=== PATIENT | female | born 1945 | race Caucasian/White ===

== ENCOUNTER 2024-10-21 13:22 | Outpatient (CLI) | payer MEDICARE, MEDICAID, SELFPAY ==
--- NOTE | 2024-10-21 13:26 | US_ITS ---
PROCEDURE INFORMATION: Exam: US Left Breast, Complete US Right Breast, Complete MG Bilateral Diagnostic Breast Tomosynthesis Exam date and time: 10/21/2024 1:51 PM Age: 79 years old Clinical indication: History of left breast cancer treated with lumpectomy TECHNIQUE: Imaging protocol: Complete ultrasound of all four quadrants of the left breast and the retroareolar regions, including ultrasound of the axilla when performed. Complete ultrasound of all four quadrants of the right breast and the retroareolar regions, including ultrasound of the axilla when performed. Bilateral Diagnostic tomosynthesis and 2D mammography including computer-aided detection (CAD) when performed. Unilateral or bilateral exam. COMPARISON: MG MM DIG MAMM BI DX W/CAD 10/21/2024 1:35 PM FINDINGS: MAMMOGRAPHY: Breast composition: The breasts are heterogeneously dense, which may obscure small masses. Breast mammogram findings: There is no stellate mass, suspicious architectural distortion or suspicious microcalcifications in either breast to suggest malignancy. Architectural distortion and nipple areolar retraction on the left there are 2 prior lumpectomy for carcinoma. No suspicious skin thickening or axillary adenopathy. ULTRASOUND: Breast ultrasound findings: Sonographic images of both breasts including the retroareolar regions, all 4 quadrants and the axilla do not demonstrate any solid or cystic masses. Cursors were placed over normal subcutaneous fat in the right 2 o'clock axis. No architectural distortion or acoustical shadowing. No skin thickening or axillary adenopathy. IMPRESSION: 1. No mammographic or sonographic evidence of malignancy. Annual bilateral mammographic screening is recommended unless otherwise clinically indicated. 2. In women diagnosed with breast cancer before age 50 or with personal histories of breast cancer and dense breasts, the [employer] recommends annual supplemental MRI in addition to yearly mammography. Alternative supplemental studies may include breast sonography or contrast enhanced mammography. Please be aware that your insurance company will determine whether they will cover the cost of such screening, despite the recommendation of your doctors and the [employer]. It is your responsibility to determine your insurance benefits. ASSESSMENT: BI-RADS Category 2: Benign.
--- OUTSIDE RECORDS SUMMARY | 2024-10-21 13:27 | XMS_ITS | Clinical Summary ---
Author Organization [facility] Address [address] [place] [address] Phone Care Team Providers Care Energy Control Officer Name Role Phone Unavailable Primary Care Provider Unavailabl e Allergies Active Allergy Reactions Criticality Noted Date Comments Sulfa (Sulfonamide Antibiotics) Rash 05/2020 Medications GLYXAMBI 10-5 mg Oral Tablet Take 1 Tab by mouth daily. 1 Active TOUJEO SOLOSTAR U-300 INSULIN 300 unit/mL (1.5 mL) SubQ Insulin Pen INJECT 34 UNITS SUBCUTANEOUSLY ONCE DAILY AT BEDTIME 1 Active hydroCHLOROthi azide (HYDRODIURIL) 25 mg Oral Tablet Take 25 mg by mouth daily. 1 Active LORazepam (ATIVAN) 0.5 mg Oral Tablet Take 0.5 mg by mouth 3 times daily as needed. 1 Active clopidogreL (PLAVIX) 75 mg Oral Tablet Take 1 Tab by mouth daily. 30 Tab 1 Active rosuvastatin (CRESTOR) 20 mg Oral Tablet Take 1 Tab by mouth daily. 30 Tab 1 Active Active Problems Problem Noted Date Diagnosed Date Hyperlipidemia 09/20/2020 Type 2 diabetes mellitus with other specified co mplication 09/20/2020 Cerebrovascular accident (CVA) 09/19/2020 Acute ischemic stroke Acute right hemiparesis Facial droop due to acute stroke Diabetic peripheral neuropathy Essential hypertension Surgical History Surgery Date Site/Laterality Comments BREAST LUMPECTOMY HYSTERECTOMY Medical History Medical History Date Comments Arthritis Cancer (HCC) Diabetes mellitus (HCC) Hypertension Social History Tobacco Use Types Packs/Day Years Used Date Smoking Tobacco: Never Smokeless Tobacco: Never Alcohol Use Standard Drinks/Week Comments Never 0 (1 standard drink = 0.6 oz pur e alcohol) AUDIT-C Answer Date Recorded Q1: How often do you have a drink containing alc ohol? Never 09/19/2020 Average Number of Drinks Not on file 021 Frequency of Binge Drinking Not on file 05/2020 Comments No Sex and Gender Information Value Date Recorded Sex Assigned at Not on file Legal Sex Female 10:07 AM EDT Gender Identity Not on file Sexual Orientation Not on file Obstetrics History Last Filed Vital Signs Vital Sign Reading Time Taken Comments Blood Pressure 156/76 09/20/2020 5:20 PM EDT Pulse 75 09/20/2020 5:20 PM EDT Temperature 36.6 C (97.9 F) 09/20/2020 5:20 PM EDT Respiratory Rate 14 09/20/2020 5:20 PM EDT Oxygen Saturation 98% 09/20/2020 5:20 PM EDT Inhaled Oxygen Concentration - - Weight 94.8 kg (209 lb) 09/20/2020 8:43 AM EDT Height 157.5 cm (5' 2 ) 09/20/2020 8:43 AM EDT Body Mass Index 38.23 09/20/2020 8:43 AM EDT Plan of Treatment Health Maintenance Due Date Last Done Comments Wellness Exam Medicare 10/12/1948 Diabetic Eye Exam 10/12/1961 DTaP/TDaP/Td (1 - Tdap) 10/12/1962 Zoster (1 of 2) 10/12/1993 Bone Density Screening 10/12/2008 RSV or 60+ (1 - 1-dose 75+ series) 10/12/2018 Hemoglobin A1c 03/23/2021 09/20/2020 Kidney Health: eGFR 09/19/2021 09/19/2020 Kidney Health: uACR 09/20/2021 09/20/2020 Lipids 09/20/2021 09/20/2020 COVID-19 Vaccine ( - season) 2023 Influenza Vaccine (#1) 2024 0, 11/29/2018, 11/16/2017, Additional history exists Pneumococcal Vaccine 50+ Completed 11/29/2018, 02/2017 Hepatitis B Vaccine Aged Out No longe r eligible based on patient's age to complete this topic Meningococcal B Vaccine Aged Out No l onger eligible based on patient's age to complete this topic Procedures Procedure Name Priority Date/Time Associated Diagnosis Comments MICROALBUMIN/CREATIN INE RATIO URINE Routine 09/20/2020 3:09 PM EDT HEMOGLOBIN A1C Routine 09/20/2020 12:41 PM EDT LIPID SCREEN Timed 09/20/2020 5:36 AM EDT BASIC METABOLIC PANEL STAT 09/19/2020 6:12 PM EDT from Last 3 Months or Most Recently Relevant to Health Maintenance Results * MICROALBUMIN/CREATININE RATIO URINE (09/20/2020 3:09 PM EDT) Urine Microalb <12.0 mg/L 09/20/2020 4:08 PM EDT [facility] Urine Creatinine 64.9 mg/dL 09/21/19 21 4:08 PM EDT [facility] Ur Microalb/Creat 021 4:08 PM EDT [facility] Comment: Because the albumin level is below the level of detection in this urine specimen, the laboratory is unable to calculate a reliable albumin/creatinine ratio. Microalbuminuria is unlikely if the urine albumin concentration is less than 20- 30 mg/L in a random specimen. Urine STRUCTURE OF URINARY TRACT PROPER / Unknown 09/20/2020 3:09 PM EDT 09/20/2020 3:22 PM EDT us Sarah Sky MD URINE ORDERABLES Final Result [facility] [address] [facility] , [place] [address] * (ABNORMAL) HEMOGLOBIN A1C (09/20/2020 12:41 PM EDT) Hgb A1C 7.0(H) 4.2 - 5.6 % 09/20/2020 2:36 PM EDT [facility] Est. Avg Glucose 154 mg/dL 09/20/2020 2:36 PM EDT [facility] Blood VENOUS BLOOD / Unknown Venipuncture / Unknown 09/20/2020 12:41 PM EDT 09/20/2020 1:34 PM EDT Narrative [facility] - 09/20/2020 2:36 PM EDT REFERENCE RANGE: Normal: 4.0-5.6% Pre-diabetes: 5.7-6.4% Provisional diagnosis of diabetes: >6.4% Hgb F>10% and anything which shortens red cell survival, such as hemolytic anemia, or unstable hemoglobin variants such as HbSS, HbSC, or HbCC, will lower the HbA1c value associated with a given level of glycemic control. us Sarah Sky MD CHEMISTRY ORDERABLES Final Re sult [facility] [address] [facility] , [place] [address] * (ABNORMAL) LIPID SCREEN (09/20/2020 5:36 AM EDT) Cholesterol 168 <200 mg/dL 09/20/2020 6:38 AM EDT [facility] Comment: < 200 Desirable 200 - 239 Borderline High >= 240 High Triglyceride 117 <150 mg/dL 09/20/2020 6:38 AM EDT [facility] Comment: < 150 Normal 150 - 199 Borderline High 200 - 499 High >= 500 Very High HDL 38(L) >=40 mg/dL 09/20/2020 6:38 AM EDT [facility] Comment: > 60 Optimal 40 - 60 Acceptable < 40 Low LDL Calculated 107(H) <100 mg/dL 09/20/2020 6:38 AM EDT [facility] Comment: < 100 Optimal 100 - 129 Near or above optimal 130 - 159 Borderline High 160 - 189 High >= 190 Very High Non-HDL-C Calculated 130(H) <=129 mg/dL 09/20/2020 6:38 AM EDT [facility] Comment: <130 Desirable 130-159 Above Desirable 160-189 Borderline High 190-219 High >= 220 Very High Fasting Specimen? Yes None 021 6:38 AM EDT [facility] Blood VENOUS BLOOD / Unknown Venipuncture / Unknown 09/20/2020 5:36 AM EDT 09/20/2020 6:04 AM EDT us Leann Angela APRN CHEMISTRY ORDERABL ES Final Result [facility] [address] [facility] , [address] [place] [id number] [facility] [address] [place] [address] * (ABNORMAL) BASIC METABOLIC PANEL (09/19/2020 6:12 PM EDT) Sodium 138 136 - 145 mmol/L 09/19/2020 6:32 PM EDT [facility] Potassium 3.8 3.5 - 5.0 mmol/L 09/19/2020 6:32 PM EDT [facility] Chloride 102 98 - 107 mmol/L 09/19/2020 6:32 PM EDT [facility] Total CO2 25 22 - 29 mmol/L 09/19/2020 6:32 PM EDT [facility] Anion Gap 11 7 - 16 mmol/L 09/19/2020 6:32 PM EDT [facility] Calcium 9.2 8.8 - 10.4 mg/dL 09/19/2020 6:32 PM EDT [facility] Glucose Lvl 133(H) 82 - 100 mg/dL 09/19/2020 6:32 PM EDT [facility] BUN 35(H) 8 - 23 mg/dL 09/19/2020 6:32 PM EDT [facility] Creatinine 0.84 0.51 - 1.30 mg/dL 09/19/2020 6:32 PM EDT [facility] GFR Afr Am 78 >=60 mL/min/1.7 3 m2 09/19/2020 6:32 PM EDT [facility] GFR Non Afr Am 68 >=60 mL/min/1.7 3 m2 09/19/2020 6:32 PM EDT [facility] Comment: This estimated GFR was calculated using CKD-EPI equation which is modified based on ethnicity for Non Americans and Americans. Both results are reported since it is not always possible to determine the patient's ethnicity. This equation should only be used for individuals 18 and older. It has not been validated for use with the elderly (>70 years), women, or in some racial or ethnic subgroups, such as Hispanics. The equation will be less accurate in people with differences in nutritional status or muscle mass. Blood VENOUS BLOOD / Unknown Venipuncture / Unknown 09/19/2020 6:12 PM EDT 09/19/2020 6:16 PM EDT us Brisa Berkowitz MD CHEMISTRY ORDERABLES Final Re sult [facility] [address] [place] [address] from Last 3 Months or Most Recently Relevant to Health Maintenance Insurance MEDICARE [place] PART A [place] B MEDICARE [place] PART A [place] B Advance Directives For more information, please contact: [phone] * Full Code (Latest Code Status on File) Date Activated Date Inactivated Comments 09/19/2020 9:38 PM 09/21/2020 12:56 AM
== END 2024-10-21 23:59 | disposition home or self-care (01) ==
LOC: RAD 13:23
PROVIDERS: PCP Nurse Practitioner Family; Visit Provider Nurse Practitioner Family
DX: R92.333 Mammographic heterogeneous density, bilateral breasts (principal); R92.8 Other abnormal and inconclusive findings on diagnostic imaging of breast; Z98.890 Other specified postprocedural states; Z85.3 Personal history of malignant neoplasm of breast
CPT/HCPCS: 76641; 77062; 77066; G0279